=== PATIENT | male | born 1940 | race Caucasian/White ===

== ENCOUNTER 2016-06-25 18:27 | Emergency (ER) | payer MEDICARE, MEDICAID ==
[2016-06-25] MEDS ORDERED: Sodium Chloride 0.9% 1,000 ML IV ONE (19:23)
[2016-06-25] MEDS ORDERED: Sodium Chloride 0.9% 10 ML Syringe FLUSH PRN ×2 (19:23)
[2016-06-25] MEDS ORDERED: Sodium Chloride 0.9% 2.5 ML Syringe FLUSH PRN ×2 (19:23)
--- NOTE | 2016-06-25 19:27 | EDM.PDOC ---
ED HPI GENERAL MEDICAL PROBLEM - General Chief Complaint: General Stated Complaint: WEAKNESS Time Seen by Provider: 06/25/16 19:08 Source of Information: Reports: Patient, Family History Limitations: Reports: No limitations - History of Present Illness INITIAL COMMENTS - FREE TEXT/NARRATIVE: HISTORY AND PHYSICAL: History of present illness: [] 76-year-old male with a history of mental challenge and tremor since childhood, now brought in by family member for evaluation of generalized weakness. Family member was concerned because patient had a recent fall and he seems weaker than his normal baseline. Patient has no specific complaints he is cheerful and alert. He does admit that he feels weak but he has no focal weakness or complaint. Review of systems: As per history of present illness and below otherwise all systems reviewed and negative. Past medical history: As per history of present illness and as reviewed below otherwise noncontributory. Surgical history: As per history of present illness and as reviewed below otherwise noncontributory. Social history: No reported history of drug or alcohol abuse. Family history: As per history of present illness and as reviewed below otherwise noncontributory. Physical exam: HEENT: Atraumatic, normocephalic, pupils reactive, negative for conjunctival pallor or scleral icterus, mucous membranes moist, throat clear, neck supple, nontender, trachea midline. Lungs: Clear to auscultation, breath sounds equal bilaterally, chest nontender. Heart: S1S2, regular, negative for clicks, rubs, or JVD. Abdomen: Soft, nondistended, nontender. Negative for masses or hepatosplenomegaly. Negative for costovertebral tenderness. Pelvis: Stable nontender. Genitourinary: Deferred. Rectal: Deferred. Extremities: Atraumatic, negative for cords or calf pain. Neurovascular unremarkable. Neuro: Awake, alert, oriented. Cranial nerves II through XII unremarkable. Cerebellum unremarkable. Motor and sensory unremarkable throughout. Exam nonfocal. Diagnostics: [] Therapeutics: [] Impression: [] Plan: [] Definitive disposition and diagnosis as appropriate pending reevaluation and review of above. - Related Data Allergies Allergy/AdvReac Type Severity Reaction Status Date / Time No Known Allergies Allergy Verified 06/25/16 18:34 Home Meds: Home Meds Divalproex Sodium [Depakote] 125 mg PO BEDTIME 09/28/14 [History] Lisinopril 20 mg PO DAILY 09/28/14 [History] cloNIDine [Catapres] 0.2 mg PO BID 09/28/14 [History] risperiDONE 1 mg PO BID 09/28/14 [History] Past Medical History HEENT History: Reports: None Cardiovascular History: Reports: Hypertension Respiratory History: Reports: None Gastrointestinal History: Reports: None Genitourinary History: Reports: None Musculoskeletal History: Reports: None Neurological History: Reports: None Other Neuro History: parkinson's disease Other Psychiatric History: Mentally challenged Endocrine/Metabolic History: Reports: None Dermatologic History: Reports: None - Infectious Disease History Infectious Disease History: Reports: None - Past Surgical History HEENT Surgical History: Reports: None GI Surgical History: Reports: None Male Surgical History: Reports: None Social & Family History - Tobacco Use Smoking Status *Q: Unknown Ever Smoked Years of Tobacco use: 20 Packs/Tins Daily: 0.5 Second Hand Smoke Exposure: No - Recreational Drug Use Recreational Drug Use: No ED ROS GENERAL - Review of Systems Review Of Systems: See Below (See history of present illness) ED EXAM, GENERAL - Physical Exam Exam: See Below (Per history of present illness) Course - Vital Signs Text/Narrative:: Signs and symptoms consistent with chronic weakness in a well-appearing patient with no complaints on nonfocal neurologic exam. Vital signs unremarkable. Full workup also benign. No further evaluation or treatment indicated. Patient and family agree with outpatient followup and strict return precautions were given Last Recorded V/S: Last Vital Signs Temp 36.7 C 06/25/16 21:19 Pulse 94 06/25/16 21:19 Resp 18 06/25/16 21:19 BP 163/78 H 06/25/16 21:19 Pulse Ox 94 L 06/25/16 21:19 - Orders/Labs/Meds Orders: Active Orders 24 hr Category Date Time Status EKG 12 Lead [EKG Documentation Completion] [RC] STAT Care 06/25/16 18:36 Active EKG Documentation Completion [RC] STAT Care 06/25/16 19:23 Active Peripheral IV Care [RC] . DIRECTED Care 06/25/16 19:23 Active Chest 1V Frontal [CR] Stat Exams 06/25/16 19:23 Taken Head wo Cont [CT] Stat Exams 06/25/16 19:24 Taken Peripheral IV Insertion Adult [OM.PC] Stat Oth 06/25/16 19:23 Ordered Labs: Laboratory Tests 06/25/16 06/25/16 06/25/16 Range/Units 19:25 19:30 19:30 WBC 6.75 (4.0-11.0) K/uL RBC 3.61 L (4.50-5.90) M/uL Hgb 10.3 L (13.0-17.0) g/dL Hct 32.1 L (38.0-50.0) % MCV 88.9 (80.0-98.0) fL MCH 28.5 (27.0-32.0) pg MCHC 32.1 (31.0-37.0) g/dL RDW Std Deviation 52.4 (28.0-62.0) fl RDW Coeff of Heather 16 H (11.0-15.0) % Plt Count 245 (150-400) K/uL MPV 10.00 (7.40-12.00) fL Neut % (Auto) 67.3 (48.0-80.0) % Lymph % (Auto) 21.0 (16.0-40.0) % Traverse % (Auto) 9.9 (0.0-15.0) % Eos % (Auto) 1.5 (0.0-7.0) % Baso % (Auto) 0.3 (0.0-1.5) % Neut # 4.5 (1.4-5.7) K/uL Lymph # 1.4 (0.6-2.4) K/uL Traverse # 0.7 (0.0-0.8) K/uL Eos # 0.1 (0.0-0.7) K/uL Baso # 0.0 (0.0-0.1) K/uL Nucleated RBC % 0.0 /100WBC Nucleated RBCs # 0 K/uL Sodium 144 (136-146) mmol/L Potassium 3.8 (3.5-5.1) mmol/L Chloride 110 (98-110) mmol/L Carbon Dioxide 22 (21-31) mmol/L BUN 23 (6.0-23.0) mg/dL Creatinine 1.0 (0.6-1.5) mg/dL Est Cr Clr Drug Dosing 58.90 mL/min Estimated GFR (MDRD) > 60.0 ml/min Glucose 110 (60-110) mg/dL Calcium 8.8 (8.8-10.8) mg/dL Total Bilirubin 1.7 H (0.1-1.5) mg/dL AST 31 (5-40) IU/L ALT 14 (8-54) IU/L Alkaline Phosphatase 72 (40-150) Troponin I (0.0-0.29) NG/ML Total Protein 7.4 (6.0-8.0) g/dL Albumin 3.5 (3.4-4.8) g/dL Globulin 3.9 H (2.0-3.5) g/dL Albumin/Globulin Ratio 0.9 L (1.3-2.8) TSH 3rd Generation 1.12 (0.47-5.0) uIU/mL Urine Color YELLOW Urine Appearance CLEAR Urine pH 5.5 (5.0-8.0) Ur Specific [place] >= 1.030 (1.001-1.035) Urine Protein TRACE (NEGATIVE) mg/dL Urine Glucose (UA) NEGATIVE (NEGATIVE) mg/dL Urine Ketones 40 H (NEGATIVE) mg/dL Urine Occult Blood TRACE-LYSED (NEGATIVE) Urine Nitrite NEGATIVE (NEGATIVE) Urine Bilirubin SMALL H (NEGATIVE) Urine Ictotest NEGATIVE Urine Urobilinogen 0.2 (<2.0) EU/dL Ur Leukocyte Esterase NEGATIVE (NEGATIVE) Urine RBC 0-2 (0-2/HPF) Urine WBC 0-1 (0-5/HPF) Ur Epithelial Cells RARE (NONE-FEW) Urine Bacteria FEW (NEGATIVE) 06/25/16 Range/Units 19:30 WBC (4.0-11.0) K/uL RBC (4.50-5.90) M/uL Hgb (13.0-17.0) g/dL Hct (38.0-50.0) % MCV (80.0-98.0) fL MCH (27.0-32.0) pg MCHC (31.0-37.0) g/dL RDW Std Deviation (28.0-62.0) fl RDW Coeff of Heather (11.0-15.0) % Plt Count (150-400) K/uL MPV (7.40-12.00) fL Neut % (Auto) (48.0-80.0) % Lymph % (Auto) (16.0-40.0) % Traverse % (Auto) (0.0-15.0) % Eos % (Auto) (0.0-7.0) % Baso % (Auto) (0.0-1.5) % Neut # (1.4-5.7) K/uL Lymph # (0.6-2.4) K/uL Traverse # (0.0-0.8) K/uL Eos # (0.0-0.7) K/uL Baso # (0.0-0.1) K/uL Nucleated RBC % /100WBC Nucleated RBCs # K/uL Sodium (136-146) mmol/L Potassium (3.5-5.1) mmol/L Chloride (98-110) mmol/L Carbon Dioxide (21-31) mmol/L BUN (6.0-23.0) mg/dL Creatinine (0.6-1.5) mg/dL Est Cr Clr Drug Dosing mL/min Estimated GFR (MDRD) ml/min Glucose (60-110) mg/dL Calcium (8.8-10.8) mg/dL Total Bilirubin (0.1-1.5) mg/dL AST (5-40) IU/L ALT (8-54) IU/L Alkaline Phosphatase (40-150) Troponin I < 0.10 (0.0-0.29) NG/ML Total Protein (6.0-8.0) g/dL Albumin (3.4-4.8) g/dL Globulin (2.0-3.5) g/dL Albumin/Globulin Ratio (1.3-2.8) TSH 3rd Generation (0.47-5.0) uIU/mL Urine Color Urine Appearance Urine pH (5.0-8.0) Ur Specific [place] (1.001-1.035) Urine Protein (NEGATIVE) mg/dL Urine Glucose (UA) (NEGATIVE) mg/dL Urine Ketones (NEGATIVE) mg/dL Urine Occult Blood (NEGATIVE) Urine Nitrite (NEGATIVE) Urine Bilirubin (NEGATIVE) Urine Ictotest Urine Urobilinogen (<2.0) EU/dL Ur Leukocyte Esterase (NEGATIVE) Urine RBC (0-2/HPF) Urine WBC (0-5/HPF) Ur Epithelial Cells (NONE-FEW) Urine Bacteria (NEGATIVE) Meds: Medications Discontinued Medications Generic Name Dose Route Start Last Admin Trade Name Jas PRN Reason Stop Dose Admin Sodium Chloride 1,000 mls @ 999 mls/hr 06/25/16 19:23 06/25/16 19:34 Normal Saline IV 06/25/16 20:23 999 mls/hr .Bolus ONE Administration Sodium Chloride 10 ml 06/25/16 19:23 Saline Flush FLUSH ASDIRECTED PRN Keep Vein Open Sodium Chloride 2.5 ml 06/25/16 19:23 Saline Flush FLUSH ASDIRECTED PRN Keep Vein Open Sodium Chloride 10 ml 06/25/16 19:23 Saline Flush FLUSH ASDIRECTED PRN Keep Vein Open Sodium Chloride 2.5 ml 06/25/16 19:23 Saline Flush FLUSH ASDIRECTED PRN Keep Vein Open Departure - Departure Time of Disposition: 21:17 Disposition: Home, Self-Care 01 Condition: good Clinical Impression: Generalized weakness, Anemia Instructions: Anemia, Nonspecific, Weakness, [id number] Referrals: PCP,None [Primary Care Provider] - Forms: ED Department Discharge Additional Instructions: You have mild generalized weakness. Your workup showed only mild anemia with a hemoglobin of 10.3. Studies including chest x-ray EKG and CAT scan of the head were unremarkable and reassuring. Her labs were otherwise negative. No further workup or treatment is indicated at this time. Followup with your tomorrow and return for new severe or worsening symptoms. - My Orders Last 24 Hours: My Active Orders 06/25/16 19:23 EKG Documentation Completion [RC] STAT Peripheral IV Care [RC] . DIRECTED Chest 1V Frontal [CR] Stat Peripheral IV Insertion Adult [OM.PC] Stat 06/25/16 19:24 Head wo Cont [CT] Stat - Assessment/Plan Last 24 Hours: My Active Orders 06/25/16 19:23 EKG Documentation Completion [RC] STAT Peripheral IV Care [RC] . DIRECTED Chest 1V Frontal [CR] Stat Peripheral IV Insertion Adult [OM.PC] Stat 06/25/16 19:24 Head wo Cont [CT] Stat
[2016-06-25 20:02] LABS: CHLORIDE,CL 110 mmol/L (98-110); SODIUM,NA 144 mmol/L (136-146)
[2016-06-25 21:20] VITALS: BP 163/78
--- NOTE | 2016-06-26 19:45 | CT ---
EXAM DATE: 06/25/16 PATIENT'S AGE: 76 Patient: ANGLE CONTEH Facility: [place], [place] Site . Site : 1940 Study: CT Head [id number]/19/2017 8:27:47 PM Ordering Physician: Guy Subramanian Final Report: INDICATION: fall FINDINGS: No intracranial hemorrhage, mass effect, or evidence for acute infarction. Patchy low attenuation changes in the white matter of both cerebral hemispheres consistent with chronic small vessel ischemic changes. Age- appropriate cerebral and cerebellar volume loss. Intracranial vascular calcifications. IMPRESSION: 1. No acute findings. 2. Chronic age-related changes. Please note that all CT scans performed at this facility use dose modulation, iterative reconstruction, and/or weight based dosing when appropriate to reduce radiation dose to as low as reasonably achievable. Dictated by: Jase Haque MD @ 06/25/2016 20:36:24 (Electronic Signature) Report Signed by Proxy and Original Signed Document filed in the Medical Record. [facility]
--- NOTE | 2016-06-26 19:47 | CR ---
EXAM DATE: 06/25/16 PATIENT'S AGE: 76 Patient: ANGLE CONTEH Facility: [place], [place] Site . Site : 1940 Study: XRay Chest [id number]/[id number]/2017 8:30:56 PM Ordering Physician: Moris Tovar Final Report: INDICATION: Fall TECHNIQUE: Chest 1 view. COMPARISON: 09/28/2014 FINDINGS: Cardiovascular and mediastinum: Heart size and vasculature are normal in caliber and appearance. Mediastinum is within normal limits. Lungs and pleural space: Lungs are clear. No sign of infiltrate or mass. No sign of pleural effusion. No pneumothorax. Bones and soft tissues: No significant findings. IMPRESSION: Unremarkable chest. Dictated by Junaid Hussein MD @ 06/25/2016 9:06:39 PM Dictated by: Junaid Hussein MD @ 06/25/2016 21:06:42 (Electronic Signature) Report Signed by Proxy and Original Signed Document filed in the Medical Record. [facility]
== END 2016-06-25 21:45 | disposition home or self-care (01) ==
LOC: MW.ED 18:27
DX: R53.1 Weakness (principal); D64.9 Anemia, unspecified; I10 Essential (primary) hypertension; Z79.899 Other long term (current) drug therapy
CPT/HCPCS: 36415; 70450; 71010; 80053; 81001; 84443; 84484; 85025; 93005; 96360; 99285; J7040; 99284

== ENCOUNTER 2016-10-06 12:26 | Emergency (ER) | payer MEDICARE, MEDICAID ==
--- NOTE | 2016-10-06 13:51 | EDM.PDOC ---
ED HPI GENERAL MEDICAL PROBLEM - General Chief Complaint: General Stated Complaint: FALL Time Seen by Provider: 10/06/16 12:31 Source of Information: Reports: Patient, Family History Limitations: Reports: No Limitations - History of Present Illness INITIAL COMMENTS - FREE TEXT/NARRATIVE: HISTORY AND PHYSICAL: [] 76-year-old male presenting with epistaxis right nare History of Present Illness: []Patient brought by EMS after having tangled up over his own feet and falling Recently diagnosed with Parkinson's disorder Review of Systems: As per history of present illness and below otherwise all systems reviewed and negative. Past medical history: As per history of present illness and as reviewed below otherwise noncontributory. Surgical history: As per history of present illness and as reviewed below otherwise noncontributory. Social history: No reported history of drug or alcohol abuse. Family history: As per history of present illness and as reviewed below otherwise noncontributory. Physical exam: Alert very pleasant gentleman answering questions if you give him time. Definite tremors present consistent with Parkinson's disease HEENT: Atraumatic, normocehpalic, pupils reactive, negative for conjunctival pallor or scleral icterus, mucous membranes moist, throat clear, neck supple, nontender, trachea midline. Right near with packing and bright red blood clots. Lungs: Clear to auscultation, breath sounds equal bilaterally, chest non tender. Heart: S1S2, regular, negative for clicks, rubs, or JVD. Extremities: Atraumatic, negative for cords or calf pain. Neurovascular unremarkable. Neuro: Awake, alert, oriented. Cranial nerves II through XII unremarkable. Cerebellum unremarkable. Motor and sensory unremarkable throughout. Exam nonfocal. Patient denies any other injuries no difficulty is able to sit and to walk by himself Diagnostics: [] Therapeutics: [Nasal rocket to right nare] Impression: [Epistaxis] Plan: [Return in 3 days for removal of the nasal rocket] Definitive disposition and diagnosis as appropriate pending reevaluation and review of above. Onset: Today, Sudden - Related Data Allergies Allergy/AdvReac Type Severity Reaction Status Date / Time No Known Allergies Allergy Verified 06/25/16 18:34 Home Meds: Home Meds Divalproex Sodium [Depakote] 125 mg PO BEDTIME 09/28/14 [History] Lisinopril 20 mg PO DAILY 09/28/14 [History] cloNIDine [Catapres] 0.2 mg PO BID 09/28/14 [History] risperiDONE 1 mg PO BID 09/28/14 [History] Past Medical History HEENT History: Reports: None Cardiovascular History: Reports: Hypertension Respiratory History: Reports: None Gastrointestinal History: Reports: None Genitourinary History: Reports: None Musculoskeletal History: Reports: None Neurological History: Reports: None Other Neuro History: Parkinson's Disease Other Psychiatric History: Mentally challenged Endocrine/Metabolic History: Reports: None Dermatologic History: Reports: None - Infectious Disease History Infectious Disease History: Reports: None - Past Surgical History HEENT Surgical History: Reports: None GI Surgical History: Reports: None Male Surgical History: Reports: None Social & Family History - Family History Family Medical History: Noncontributory - Tobacco Use Smoking Status *Q: Former Smoker Years of Tobacco use: 30 Packs/Tins Daily: 1 Used Tobacco, but Quit: Yes Month Tobacco Last Used: October Second Hand Smoke Exposure: No - Caffeine Use Caffeine Use: Reports: Coffee, Soda - Recreational Drug Use Recreational Drug Use: Yes ED ROS GENERAL - Review of Systems Review Of Systems: See Below Neurological: Reports: Gait Disturbance ED EXAM, GENERAL - Physical Exam Exam: See Below (See dictation) Course - Vital Signs Last Recorded V/S: Last Vital Signs Temp 36.6 C 10/06/16 12:29 Pulse 99 10/06/16 12:29 Resp 16 10/06/16 12:29 BP 149/78 H 10/06/16 12:29 Pulse Ox 95 10/06/16 12:29 Departure - Departure Time of Disposition: 13:51 Disposition: Home, Self-Care 01 Condition: Good Clinical Impression: Epistaxis - Discharge Information Forms: ED Department Discharge Additional Instructions: The following information is given to patients seen in the emergency department who are being discharged to home. This information is to outline your options for follow-up care. We provide all patients seen in our emergency department with a follow-up referral. The need for follow-up, as well as the timing and circumstances, are variable depending upon the specifics of your emergency department visit. If you don't have a primary care physician on staff, we will provide you with a referral. We always advise you to contact your personal physician following an emergency department visit to inform them of the circumstance of the visit and for follow-up with them and/or the need for any referrals to a consulting specialist. The emergency department will also refer you to a specialist when appropriate. This referral assures that you have the opportunity for followup care with a specialist. All of these measure are taken in an effort to provide you with optimal care, which includes your followup. Under all circumstances we always encourage you to contact your private physician who remains a resource for coordinating your care. When calling for followup care, please make the office aware that this follow-up is from your recent emergency room visit. If for any reason you are refused follow-up, please contact the [facility] emergency department at and asked to speak to the emergency department charge nurse. Return 48-72 hours for removal of the nasal rocket
== END 2016-10-06 14:00 | disposition home or self-care (01) ==
LOC: MW.ED 12:26
CPT/HCPCS: 30903; 99282; 99284

== ENCOUNTER 2016-10-08 18:14 | Emergency (ER) | payer MEDICARE, MEDICAID ==
--- NOTE | 2016-10-08 18:39 | EDM.PDOC ---
ED HPI GENERAL MEDICAL PROBLEM - General Stated Complaint: NASAL TUBE REMOVAL Time Seen by Provider: 10/08/16 18:36 - History of Present Illness INITIAL COMMENTS - FREE TEXT/NARRATIVE: HISTORY AND PHYSICAL: History of present illness: Patient is a 76-year-old white male presents for reevaluation of Rhino Rocket placed 2 days prior for removal he tolerated this well he denies any other complaints Review of systems: As per history of present illness and below otherwise all systems reviewed and negative. Past medical history: As per history of present illness and as reviewed below otherwise noncontributory. Surgical history: As per history of present illness and as reviewed below otherwise noncontributory. Social history: No reported history of drug or alcohol abuse. Family history: As per history of present illness and as reviewed below otherwise noncontributory. Physical exam: HEENT: Atraumatic, normocephalic, pupils reactive, negative for conjunctival pallor or scleral icterus, mucous membranes moist, throat clear, neck supple, nontender, trachea midline. Rhino Rocket in place right nares Lungs: Clear to auscultation, breath sounds equal bilaterally, chest nontender. Heart: S1S2, regular, negative for clicks, rubs, or JVD. Abdomen: Soft, nondistended, nontender. Negative for masses or hepatosplenomegaly. Negative for costovertebral tenderness. Pelvis: Stable nontender. Genitourinary: Deferred. Rectal: Deferred. Extremities: Atraumatic, negative for cords or calf pain. Neurovascular unremarkable. Neuro: Awake, alert, baseline nonfocal exam Diagnostics: None Therapeutics: Rhino Rocket removed with small amount of blood from the right nares this was easily controlled with minimal direct pressure and gauze patient was observed in ED with no recurrence Impression: #1 reevaluation epistaxis with Rhino Rocket placement status post removal Definitive disposition and diagnosis as appropriate pending reevaluation and review of above. - Related Data Allergies Allergy/AdvReac Type Severity Reaction Status Date / Time No Known Allergies Allergy Verified 06/25/16 18:34 Home Meds: Home Meds Divalproex Sodium [Depakote] 125 mg PO BEDTIME 09/28/14 [History] Lisinopril 20 mg PO DAILY 09/28/14 [History] cloNIDine [Catapres] 0.2 mg PO BID 09/28/14 [History] risperiDONE 1 mg PO BID 09/28/14 [History] Past Medical History HEENT History: Reports: None Cardiovascular History: Reports: Hypertension Respiratory History: Reports: None Gastrointestinal History: Reports: None Genitourinary History: Reports: None Musculoskeletal History: Reports: None Neurological History: Reports: None Other Neuro History: Parkinson's Disease Other Psychiatric History: Mentally challenged Endocrine/Metabolic History: Reports: None Dermatologic History: Reports: None - Infectious Disease History Infectious Disease History: Reports: None - Past Surgical History HEENT Surgical History: Reports: None GI Surgical History: Reports: None Male Surgical History: Reports: None Social & Family History - Family History Family Medical History: Noncontributory - Tobacco Use Smoking Status *Q: Former Smoker Years of Tobacco use: 30 Packs/Tins Daily: 1 Used Tobacco, but Quit: Yes Month Tobacco Last Used: October Second Hand Smoke Exposure: No - Caffeine Use Caffeine Use: Reports: Coffee, Soda - Recreational Drug Use Recreational Drug Use: Yes ED ROS GENERAL - Review of Systems Review Of Systems: ROS reveals no pertinent complaints other than HPI. ED EXAM, GENERAL - Physical Exam Exam: See Below (See dictation) Departure - Departure Time of Disposition: 18:38 Disposition: Home, Self-Care 01 Condition: Good Clinical Impression: Epistaxis - Discharge Information Additional Instructions: The following information is given to patients seen in the emergency department who are being discharged to home. This information is to outline your options for follow-up care. We provide all patients seen in our emergency department with a follow-up referral. The need for follow-up, as well as the timing and circumstances, are variable depending upon the specifics of your emergency department visit. If you don't have a primary care physician on staff, we will provide you with a referral. We always advise you to contact your personal physician following an emergency department visit to inform them of the circumstance of the visit and for follow-up with them and/or the need for any referrals to a consulting specialist. The emergency department will also refer you to a specialist when appropriate. This referral assures that you have the opportunity for followup care with a specialist. All of these measure are taken in an effort to provide you with optimal care, which includes your followup. Under all circumstances we always encourage you to contact your private physician who remains a resource for coordinating your care. When calling for followup care, please make the office aware that this follow-up is from your recent emergency room visit. If for any reason you are refused follow-up, please contact the [facility] emergency department at and asked to speak to the emergency department charge nurse. No blowing picking upas discussed follow-up primary medical doctor wanted today' s return as needed as discussed
== END 2016-10-08 19:04 | disposition home or self-care (01) ==
LOC: MW.ED 18:14
DX: Z48.00 Encounter for change or removal of nonsurgical wound dressing (principal)
CPT/HCPCS: 99282